=== PATIENT | female | born 1995 | race Caucasian/White ===

== ENCOUNTER 2020-03-10 15:32 | Emergency (ER) | payer BC ==
[~2020-03-10] VITALS: Ht 152.4 cm; Wt 47.6 kg
[2020-03-10 15:53] VITALS: BP 109/69
[2020-03-10] MEDS ORDERED: KETOROLAC 30 MG/ML VIAL IM ONE (16:10)
--- NOTE | 2020-03-10 16:19 | NUR ---
RECEVIED A 24/M FROM TRIAGE WITH C/O LOW BACK PAIN WELL A DULL HEADACHE X 2 DAYS. DENIES LOC. DENIES INJURY/TRAUMA. IN BED FOR MSE.
[2020-03-10 16:26] VITALS: BP 109/69
--- NOTE | 2020-03-10 16:26 | NUR ---
Patient discharged with v/s stable. Written and verbal after care instructions given and explained. Patient alert, oriented and verbalized understanding of instructions. Ambulatory with steady gait. All questions addressed prior to discharge. ID band removed. Patient advised to follow up with PMD. Rx of KEFLEX, NAPROXEN given. Patient educated on indication of medication including possible reaction and side effects. Opportunity to ask questions provided and answered.
== END 2020-03-10 16:26 | disposition home or self-care (01) ==
LOC: MED 15:32
DX: G44.209 Tension-type headache, unspecified, not intractable (principal); N39.0 Urinary tract infection, site not specified
CPT/HCPCS: 81002; 81025; 96372; 99283; J1885

== ENCOUNTER 2021-03-01 08:19 | Emergency (ER) | payer BC ==
[~2021-03-01] VITALS: Ht 152.4 cm; Wt 49.9 kg
[2021-03-01 08:22] VITALS: BP 103/75
--- NOTE | 2021-03-01 08:46 | NUR ---
25/F presents to ED with c/o chest pain x3 days. Patient states 3 days ago she began experiencing constant chest pressure while at rest. States the pain is a 5/10 dull pressure pain that worsens with movement or exercise. Patient states she was seen 4 years ago for a similar pain and had a stress test performed in which she was told she had "a small valve." Patient states she took two 81mg Aspirin yesterday with some relief. Denies abdominal pain, nausea, vomiting, diarrhea. Patient denies shortness of breath, patient placed in gown, EKG performed bedside.
[2021-03-01] MEDS ORDERED: CYCLOBENZAPRINE 10 MG TAB PO ONE (08:50)
[2021-03-01] MEDS ORDERED: ACETAMINOPHEN EXTRA STRENGTH 500 MG TAB PO ONE (08:50)
--- NOTE | 2021-03-01 08:50 | NUR ---
Lab at bedside
[2021-03-01 09:00] LABS: BASOPHILS % (AUTO) 0.7 % (0.0-2.0); EOSINOPHILS # (AUTO) 0.1 K/uL (0-0.4); EOSINOPHILS % (AUTO) 1.7 % (0.0-4.0); HEMATOCRIT 38.8 % (36-48); LYMPHOCYTES # (AUTO) 1.2 K/uL (2.5-16.5); LYMPHOCYTES % (AUTO) 32.1 % (20.5-51.1); MEAN CORPUSCULAR HEMOGLOBIN 29 pg (27-31); MEAN CORPUSCULAR HGB CONC 33 g/dL (33-37); MEAN CORPUSCULAR VOLUME 87.8 fL (80-94); MONOCYTES # (AUTO) 0.2 K/uL (0.8-1.0); MONOCYTES % (AUTO) 4.9 % (1.7-9.3); NEUTROPHILS # (AUTO) 2.2 K/uL (1.8-7.7); NEUTROPHILS % (AUTO) 60.6 % (42.2-75.2); PLATELET COUNT (AUTO) 154 K/uL (140-450); RED BLOOD CELL COUNT(AUTO) 4.42 MIL/uL (4.20-5.40); RED CELL DISTRIBUTION WIDTH 14.3 % (11.6-13.7); WHITE BLOOD COUNT (AUTO) 3.6 K/uL (4.8-10.8)
--- NOTE | 2021-03-01 09:00 | NUR ---
xray at bedside
[2021-03-01] MEDS ORDERED: CRUSHER, PILL MC ONE (09:06)
[2021-03-01 09:16] LABS: ALBUMIN 3.9 g/dL (3.4-5.0); ANION GAP 17.2 (8-16); CARBON DIOXIDE 24.9 mmol/L (21-32); CREATININE 0.6 mg/dL (0.6-1.3); POTASSIUM 4.1 mmol/L (3.5-5.1); TOTAL BILIRUBIN 0.5 mg/dL (0.0-1.0)
[2021-03-01] MEDS ORDERED: CYCL-654 PO (09:37)
[2021-03-01] MEDS ORDERED: IBUP-2213 PO (09:40)
--- NOTE | 2021-03-01 09:53 | NUR ---
Patient discharged with v/s stable. Written and verbal after care instructions given and explained. Patient alert, oriented and verbalized understanding of instructions. Ambulatory with steady gait. All questions addressed prior to discharge. ID band removed. Patient advised to follow up with PMD. Rx of Motrin and Cyclobenzapine given. Patient educated on indication of medication including possible reaction and side effects. Opportunity to ask questions provided and answered.
[2021-03-01 09:54] VITALS: BP 103/75
== END 2021-03-01 09:53 | disposition home or self-care (01) ==
LOC: MED 08:19
DX: R07.9 Chest pain, unspecified (principal); Z79.899 Other long term (current) drug therapy
CPT/HCPCS: 36415; 71045; 80053; 84484; 85025; 93005; 99285

== ENCOUNTER 2022-03-07 17:01 | Emergency (ER) | payer BC ==
[~2022-03-07] VITALS: Ht 152.4 cm; Wt 49.2 kg
[~2022-03-07 17:01] MED LIST: CYCL-654 PO; IBUP-2213 PO
[2022-03-07 17:15] VITALS: BP 100/68
--- NOTE | 2022-03-07 17:20 | NUR ---
PT AMB TO BED 9.
--- NOTE | 2022-03-07 17:24 | NUR ---
26 Y/O FEMALE BIB SELF C/O 06/02 LUQ ABDOMINAL PAIN X YESTERDAY. PT DENIES NAUSEA,VOMITNG, DIARRHEA. PT DENIES AGGREVATING OR ALLEVIATING FACTORS. PT DENIES CHEST PAIN, SOB. PT DENIES FEVER OR CHILLS. PT IS ALERT AND ORIENTED X4. LUNG SOUNDS CTA. BED LOCKED IN LOWEST POSITION/ BED RAILX1. PMH: DENIES
[2022-03-07] MEDS ORDERED: ONDA-188 SL (18:04)
[2022-03-07 18:10] LABS: APPEARANCE,URINE HAZY (CLEAR); BILIRUBIN,URINE NEGATIVE (NEGATIVE); BLOOD, URINE NEGATIVE (NEGATIVE); COLOR,URINE YELLOW (YELLOW); LEUKOCYTE ESTERASE ,URINE TRACE (NEGATIVE); NITRITE, URINE NEGATIVE (NEGATIVE); UGLUCOSE NEGATIVE (NEGATIVE)
[2022-03-07] MEDS: KETOROLAC 30 MG/ML VIAL IM ONE (18:19)
[2022-03-07 18:28] LABS: BASOPHILS # (AUTO) 0.1 K/uL (0.00-0.22); BASOPHILS % (AUTO) 1.1 % (0.0-2.0); EOSINOPHILS # (AUTO) 0.1 K/uL (0-0.4); EOSINOPHILS % (AUTO) 2.2 % (0.0-4.0); HEMATOCRIT 39.5 % (36-48); HEMOGLOBIN 13.3 g/dL (12.0-16.0); LYMPHOCYTES # (AUTO) 1.5 K/uL (2.5-16.5); LYMPHOCYTES % (AUTO) 29.6 % (20.5-51.1); MEAN CORPUSCULAR HEMOGLOBIN 29 pg (27-31); MEAN CORPUSCULAR HGB CONC 34 g/dL (33-37); MEAN CORPUSCULAR VOLUME 86.5 fL (80-94); MONOCYTES # (AUTO) 0.3 K/uL (0.8-1.0); MONOCYTES % (AUTO) 5.2 % (1.7-9.3); NEUTROPHILS # (AUTO) 3.1 K/uL (1.8-7.7); NEUTROPHILS % (AUTO) 61.9 % (42.2-75.2); PLATELET COUNT (AUTO) 189 K/uL (140-450); RED BLOOD CELL COUNT(AUTO) 4.57 MIL/uL (4.20-5.40); RED CELL DISTRIBUTION WIDTH 13.9 % (11.6-13.7); WHITE BLOOD COUNT (AUTO) 5.1 K/uL (4.8-10.8)
[2022-03-07 18:31] LABS: RBC,URINE NONE SEEN /HPF (0-5)
[2022-03-07 18:47] LABS: ALBUMIN 4.1 g/dL (3.4-5.0); ANION GAP 7.5 (8-16); CREATININE 0.6 mg/dL (0.6-1.3); POTASSIUM 3.5 mmol/L (3.5-5.1); TOTAL BILIRUBIN 0.4 mg/dL (0.0-1.0)
[2022-03-07] MEDS ORDERED: IBUP-2213 PO (19:15)
[2022-03-07] MEDS ORDERED: NITR100C7 PO (19:15)
--- NOTE | 2022-03-07 19:18 | NUR ---
Pt report given to ALEJO LANDRY. Transfer of care at this time.
--- NOTE | 2022-03-07 19:23 | NUR ---
Patient discharged with v/s stable. Written and verbal after care instructions given and explained. Patient alert, oriented and verbalized understanding of instructions. Ambulatory with steady gait. All questions addressed prior to discharge. ID band removed. Patient advised to follow up with PMD. Rx of IBUPROFEN, MACROBID given. Patient educated on indication of medication including possible reaction and side effects. Opportunity to ask questions provided and answered.
== END 2022-03-07 19:23 | disposition home or self-care (01) ==
LOC: MED 17:01
DX: N39.0 Urinary tract infection, site not specified (principal); N83.209 Unspecified ovarian cyst, unspecified side; Z79.899 Other long term (current) drug therapy
CPT/HCPCS: 36415; 76856; 80053; 81001; 81025; 83690; 85025; 87086; 93976; 96372; 99284; J1885; Q0092